=== PATIENT | female | born 1975 | race African-American/Black ===

== ENCOUNTER 2023-01-14 05:07 | Observation (INO) ==
--- NOTE | 2022-12-18 12:41 | PAT Medication Instructions ---
Medication Instructions Date of Service December 18, 2022 Home Medications Vitamin D3 600 mcg PO QAM cyanocobalamin (vitamin B-12) 1 tab PO UD PRN propranolol 120 mg capsule,24 hr,extended release 120 mg PO QAM rizatriptan 10 mg tablet 10 mg PO UD PRN Continue as directed rizatriptan 10 mg tablet 10 mg PO UD PRN(if needed) DO NOT take the morning of surgery Vitamin D3 600 mcg PO QAM cyanocobalamin (vitamin B-12) 1 tab PO UD PRN Take morning of surgery With a small sip of water, OTHERWISE NOTHING TO EAT OR DRINK AFTER MIDNIGHT: propranolol 120 mg capsule,24 hr,extended release 120 mg PO QAM Other Notes If you have any questions please call us at [phone] or [phone] or [phone] or [phone]
--- NOTE | 2022-12-26 11:32 | Anesthesiology Consultation ---
Date of Service December 26, 2022 Assessment & Plan (1) Encounter for pre-operative examination: - check urine test STAT am DOS. - Outpatient joint assessment: Patient is currently scheduled for inpatient pathway. If re-evaluated and patient/surgeon requests outpatient pathway, patient is not recommended candidate for outpatient joint program from anesthesia standpoint. Chart Review Chart Review: Acceptable Risk for Surgery and Patient seen in Pre Admission Testing Teaching & Discussion Pre-Anesthesia Teaching/Discussion Notes: Instructed NPO after midnight before surgery, except medications with 15 cc of water. Medication instructions provided according to the PAT guidelines. History Surgery Operation Date: 01/14/23 10:00 Proposed Procedures p Left Total Knee Arthroplasty - Mg Griffin MD Height/Weight Height: 5 ft 3 in Weight: 139.6 kg Allergies Allergy/AdvReac Type Severity Reaction Status Date / Time lisinopril Allergy Severe angioedema Verified 12/25/22 08:37 topiramate [From Topamax] Allergy Severe Selina Verified 12/25/22 08:37 sumatriptan [From Imitrex] Allergy felt like Verified 12/25/22 08:37 her heart was going to explode Medications Home Medications Medication Instructions Recorded Confirmed Last Taken Vitamin D3 600 mcg PO QAM 12/18/22 12/25/22 Unknown cyanocobalamin (vitamin B-12) 1 tab PO UD PRN Fatigue 12/18/22 12/25/22 Unknown propranolol 120 mg capsule,24 120 mg PO QAM 12/18/22 12/25/22 Unknown hr,extended release rizatriptan 10 mg tablet 10 mg PO UD PRN migraines 12/18/22 12/25/22 Unknown acetaminophen [Tylenol] PO PRN 12/25/22 12/25/22 Unknown [id number] See Rx Instructions topical DAILY 12/26/22 Unknown 0.01 %-4 %-0.05 % topical cream #30 grams ([facility]) Past Medical History Medical History (Updated 12/26/22 @ 11:42 by Dedra Roldan PA-C) History of COVID-19 02/2021, home test, vertigo, shortness of breath, mental fog (lasted 2 months), fatigue>no residual symptoms Slow to wake up after anesthesia "felt like she couldn't function for 4 days after general anesthesia first c- section" Hx of migraines Hypertension controlled, stable per pt Patient denies h/o stroke, seizures, heart attack, heart failure, DM, blood clots/DVTs or blood transfusions. Exercise / Class Metabolic Activity II 4-5 Yardwork/Stairs/Walk up hill (denies chest discomfort or shortness of breath with 1 FOS) Past Family History Family History Mother Heart disease Hypertension Father Diabetes Past Surgical History Surgical History (Updated 12/26/22 @ 11:42 by Dedra Roldan PA-C) [place] teeth extracted History of esophagogastroduodenoscopy (EGD) x2 H/O section x2 Past Anesthesia History No Family Hx of Anesthesia Complications and Other (see above) History of PONV No Hx of PONV and No Hx of Motion Sickness Social History Smoking Status: Current every day smoker (-advised) Smoking cigarettes per day: 10 Do You Dip or Chew Tobacco: No Hx Alcohol Use: Yes Alcohol type: hard liquor alcohol intake frequency: a few times a month Hx Substance Use: No substance use type: does not use Review of Systems Snoring, denies witnessed apneas. Patient denies chest pain, shortness of breath, dyspnea on exertion, reflux, fever, chills, cough, wheezing, or palpitations. Physical Exam Vital Signs Vitals BP 118/63 P 68 TEMP 97.9 SP02 99% on RA RESP 18 Physical Patient resting comfortably in chair in no acute distress, alert and oriented, responding appropriately throughout visit Full cervical extension range of motion without pain TMD 3.5 finger breadths Mallampati Score 2 Dentition: several caps/crowns, denies chipped or loose teeth, implants or bridges Lungs: normal respiratory effort. Good air movement, clear throughout to auscultation, no adventitious breath sounds Cardiac: regular rate and rhythm, no murmurs noted Carotid arteries: negative bruit bilat Lab Results Anesthesia Preop Results Results Anesthesia Widget: WBC 6.27 K/ul (4.8-10.8) 12/26/22 Hgb 13.0 g/dl (12.0-16.0) 12/26/22 Hct 39.7 % (37.0-47.0) 12/26/22 Plt 244 K/uL (130-400) 12/26/22 Na 140 mmol/L (136-145) 12/26/22 K 3.9 mmol/L (3.5-5.1) 12/26/22 Cl 108 mmol/L (98-107) H 12/26/22 CO2 27 mmol/L (21-32) 12/26/22 BUN 14 mg/dl (6-23) 12/26/22 Creat 0.73 mg/dl (0.6-1.2) 12/26/22 Glucose Level 86 mg/dl (70-99(Fasting)) 12/26/22 PT 10.6 Seconds (9.0-12.0) 12/26/22 PTT 27.6 Seconds (21.0-31.0) 12/26/22 INR 1.0 (0.9-1.1) 12/26/22 Urine Color Yellow 12/26/22 Urine Appearance Clear (Clear) 12/26/22 Urine pH 6.0 (4.5-7.5) 12/26/22 Urine Specific [place] 1.016 (1.000-1.030) 12/26/22 Urine Protein Negative (Negative) 12/26/22 Urine Glucose (UA) Negative (Negative) 12/26/22 Urine Ketones Negative (Negative) 12/26/22 Urine Blood Negative (Negative) 12/26/22 Urine Nitrite Negative (Negative) 12/26/22 Urine Bilirubin Negative (Negative) 12/26/22 Urine Urobilinogen Negative (Negative) 12/26/22 Urine Leukocyte Esterase Negative (Negative) 12/26/22 Blood Type B Positive 12/26/22 Antibody Screen NEGATIVE 12/26/22 Testing Electrocardiogram Date: 12/26/22 No acute process Chest X-Ray Date: 12/26/22 No acute process.
--- NOTE | 2023-01-10 08:26 | History & Physical Report ---
Date of Service January 10, 2023 Assessment & Plan (1) Primary osteoarthritis of left knee: Plan: Treatment options discussed with the patient and they wish to proceed with surgical management. Risks, benefits and alternatives to surgery including but not limited to infection, DVT, pain, stiffness, need for revision surgery, damage to blood vessels, damage to nerves, PE, , were discussed with the patient and they wish to proceed. Plan for left total knee arthroplasty scheduled for January 14 at [facility] with Dr. Griffin. Plan on Xarelto postop for DVT prophylaxis. Plan on outpatient physical therapy postop. All questions answered. Patient will follow-up postoperatively. History of Present Illness Chief Complaint: Left knee pain Primary Care Provider: Daryl Almonte MD 47-year-old female with past medical history significant for hypertension, history of migraines who presents with ongoing left knee pain. Pain is interfering with her daily activities. She has failed conservative measures including anti-inflammatories and injections. She would like to proceed with surgical management. Patient denies headaches, sweats, fevers, chills, double vision, blurred vision, cough, sore throat, dysphagia, chest pain, sob, wheezing, n/v/d/c, numbness, tingling, fatigue, urinary symptoms, mood disorders. ROS positive for left knee pain and stiffness. Allergies Allergy/AdvReac Type Severity Reaction Status Date / Time lisinopril Allergy Severe angioedema Verified 12/25/22 08:37 topiramate [From Topamax] Allergy Severe Selina Verified 12/25/22 08:37 sumatriptan [From Imitrex] Allergy felt like Verified 12/25/22 08:37 her heart was going to explode Home Medications Medication Instructions Recorded Confirmed Type Vitamin D3 600 mcg PO QAM 12/18/22 12/25/22 History cyanocobalamin (vitamin B-12) 1 tab PO UD PRN Fatigue 12/18/22 12/25/22 History propranolol 120 mg capsule,24 120 mg PO QAM 12/18/22 12/25/22 History hr,extended release rizatriptan 10 mg tablet 10 mg PO UD PRN migraines 12/18/22 12/25/22 History acetaminophen [Tylenol] PO PRN 12/25/22 12/25/22 History [id number]-ulnoljkim See Rx Instructions topical DAILY 12/26/22 Rx 0.01 %-4 %-0.05 % topical cream #30 grams ([facility]) Past Med/Surg History Medical History (Updated 01/10/23 @ 08:28 by Justin Valdez PA-C) History of COVID-19 02/2021, home test, vertigo, shortness of breath, mental fog (lasted 2 months), fatigue>no residual symptoms Slow to wake up after anesthesia "felt like she couldn't function for 4 days after general anesthesia first c- section" Hx of migraines Hypertension controlled, stable per pt Surgical History (Updated 12/26/22 @ 11:42 by Dedra Roldan PA-C) [place] teeth extracted History of esophagogastroduodenoscopy (EGD) x2 H/O section x2 Family History Mother Heart disease Hypertension Father Diabetes Social History Smoking Status: Current every day smoker (-advised) Tobacco Type: Cigarettes Cigarettes Per Day: 10; Second Hand Exposure: No; Do You Dip or Chew Tobacco: No; Tobacco Cessation Education Requested by Patient: No Hx Alcohol Use: Yes Alcohol type: hard liquor Hx Substance Use: No Preferred Language: [place] Communication Ability: Effective Milk Drier Required: No Beliefs That Will Affect Care: None marital status: Current Living Situation: Spouse and Family Other Information That Helps Us Care for You: No Feels Safe at Home: Yes Safety Concerns: Feels Safe At This Time Assistive Devices: Cane Review of Systems All systems reviewed & are unremarkable except as noted in HPI & below Physical Exam Constitutional: well developed and well nourished; no acute distress Eyes: PERRL, conjunctivae normal, anicteric sclerae ENMT: external ear and nose normal, oropharynx normal Neck: trachea midline, no thyromegaly Respiratory: normal respiratory effort, lungs clear to auscultation Cardiovascular: RRR, no murmur, no edema Musculoskeletal: Left knee: Varus alignment with mild joint effusion. Tenderness medial joint line. Positive Cecilia's. Stable to valgus and varus stress test. Range of motion is 10 to 95 degrees. Skin: no rashes, warm and dry Neurologic: patellar DTR's 2+ bilat, sensation intact Psychiatric: A+Ox3, euthymic affect Results & Data Diagnostic Findings Left knee radiographs demonstrate end-stage osteoarthritis left knee, [id number] medial compartment. She does have bone loss medial tibial plateau. There is periarticular osteophytes. Varus alignment.
[2023-01-14] MEDS ORDERED: ACETAMINOPHEN 500 MG TAB PO SCH (06:00)
[2023-01-14] MEDS ORDERED: TRANEXAMIC ACID 1,000 MG **IV Intra-op IV SCH (06:00)
[2023-01-14] MEDS ORDERED: LR 60ML/HR IV SCH (06:00)
[2023-01-14] MEDS ORDERED: TRANEXAMIC ACID 1,000 MG **IV Pre-op IV SCH (06:00)
[2023-01-14] MEDS ORDERED: METOCLOPRAMIDE HCL 10 MG TABLET PO SCH (06:00)
[2023-01-14] MEDS ORDERED: ROPIVACAINE 0.5% HCL/PF 150 MG, BUPIVACAINE 0.75% MPF 20 ML, EPINEPHrine 30MG/30ML (OR ... INSTIL SCH (06:00)
[2023-01-14] MEDS ORDERED: GABAPENTIN 900 MG DOSE PO SCH (06:00)
[2023-01-14] MEDS ORDERED: LR 500ML BOLUS, THEN 15ML/HR IV SCH (06:00)
[2023-01-14] MEDS ORDERED: dexAMETHasone 4 MG TAB PO SCH (06:00)
[2023-01-14] MEDS ORDERED: FAMOTIDINE 20 MG TAB PO SCH (06:00)
[2023-01-14] MEDS ORDERED: CeleBREX 200 MG CAP PO SCH (06:00)
[2023-01-14] MEDS ORDERED: ROPIVACAINE 0.5% 5 MG/ML 30 ML VIAL ONE (06:21)
[2023-01-14] MEDS ORDERED: BUPIVACAINE 0.5 % 5 MG/1 ML PF 10ML VIAL ONE (06:21)
[2023-01-14] MEDS ORDERED: fentaNYL citrate PF 100 MCG/2 ML VIAL IV PRN (06:38)
[2023-01-14] MEDS ORDERED: ATROPINE SULFATE 0.1 MG/ML 10ML SYR IV PRN (06:38)
[2023-01-14] MEDS ORDERED: ONDANSETRON INJ 2 MG/ML 2 ML VIAL IV PRN ×2 (06:38→12:43)
[2023-01-14] MEDS ORDERED: ePHEDrine sulfate 50 MG/ML AMP IV PRN (06:38)
[2023-01-14] MEDS ORDERED: fentaNYL citrate PF 100 MCG/2 ML VIAL ONE (06:53)
[2023-01-14] MEDS ORDERED: MIDAZOLAM HCL 1 MG/ML 2ML VIAL ONE (06:53)
--- NOTE | 2023-01-14 07:07 | History & Physical Bridge Note ---
Date of Service January 14, 2023 History & Physical Bridge Note I have examined the patient, reviewed the History & Physical and in the interval since the performance of the History & Physical I have noted the following changes of clinical significance: no changes noted
[2023-01-14] MEDS ORDERED: ORTHO JOINT ANESTHETIC ONE (07:18)
[2023-01-14] MEDS ORDERED: PROPOFOL IV EMULSION 10 MG/ML 20 ML VIAL IV ONE ×3 (07:32→10:05)
[2023-01-14] MEDS ORDERED: ONDANSETRON INJ 2 MG/ML 2 ML VIAL ONE (07:32)
[2023-01-14] MEDS ORDERED: LIDOCAINE 2% 2 ML VIAL/AMP(20MG/ML) INFIL ONE (07:32)
--- NOTE | 2023-01-14 10:36 | Post Operative Brief Note ---
Immediate Post Op Note v1 Date of Surgery January 14, 2023 Pre & Post Diagnosis Operation Date: 01/14/23 07:15 Pre-Op Diagnosis: Left Knee Osteoarthritis, Morbid obesity BMI 55.3 Post-Op Diagnosis: Left Knee Osteoarthritis, morbid obesity BMI 55.3 I identified the patient and participated in the time-out.: Yes Procedure Operation Date: 01/14/23 07:15 Actual Procedures p Left Total Knee Arthroplasty(Left), increased difficulty more obesity BMI 55.3 - Mg Griffin MD Surgeon Mg Griffin MD [place] Supervisor Justin GEORGE Estimated Blood Loss 10 Findings Consistent with Post-Op Diagnosis Specimens bone cuts Drains Hemovac Drain Anesthesia Type MAC Spinal Regional Complications none Disposition Disposition: Recovery Room Overlapping Procedure I was immediately available: during the entire case.
--- NOTE | 2023-01-14 10:52 | Operative Report ---
Post Operative Report Pre & Post Diagnosis Operation Date: 01/14/23 07:15 Pre-Op Diagnosis: Left Knee Osteoarthritis, morbid obesity BMI 55.3 Post-Op Diagnosis: Left Knee Osteoarthritis , morbid obesity BMI 55.3 I identified the patient and participated in the time-out.: Yes Procedure Operation Date: 01/14/23 07:15 Actual Procedures p Left Total Knee Arthroplasty(Left), increased difficulty more obesity BMI 55.3, application petrona and Acticoat superficial wound VAC - Mg Griffin MD Surgeon Mg Griffin MD Hammerer Justin GEORGE Estimated Blood Loss 10 Findings Consistent with Post-Op Diagnosis Specimens bone cuts Drains 2 Hemovac Anesthesia Type MAC Spinal Regional Complications none Disposition Disposition: Recovery Room Indications 47-year-old female with extensive conservative management with chronic osteoarthritis in her left knee. Radiographs demonstrate she is [id number] there is medial subluxation of the femur on the tibia she has bone loss in the medial compartment tricompartmental osteoarthritic changes with a varus knee. Description of Procedure Patient taken to the operating room the size under Spinal MAC regional block anesthesia. Patient was placed supine on the operating table. A pneumatic tourniquet was placed about the markedly obese upper thigh. The left lower extremity was prepped and draped in sterile fashion. Knee exam demonstrated varus knee no pseudolaxity 0 through 90 degrees range of motion. The leg was elevated exsanguinated with an Esmarch bandage and pneumatic tourniquet was raised to 350 millimeters of mercury. Skin incised sharply in longitudinal fashion. Subcutaneous flaps elevated. Incision was made through the medial retinaculum extending up in the mid third of the quadriceps tendon and down to the medial tibial tubercle. Intra-articular findings demonstrated tricompartmental osteoarthritis rdvj-ik-cqfq medial compartment some bone loss on the tibia and femur with eburnation medial compartment and tricompartmental osteophytes. The [email or web address] tri[employer]patchn total knee arthroplasty system was used. To expose the knee the infrapatellar fat pad was resected. The meniscal remnants and cruciate ligaments were resected. The anterior fat pad over the femur in the area of the location of the anterior flange of the femoral component was r esected. The lateral synovial bands were released. The femur was exposed. An intramedullary drill hole was made into the canal. A guide luis antonio was placed. Distal femoral cutting guide was adjusted to resect a 5 degree valgus cut with 8 millimeters distal femur resected. The knee was extended and a subperiosteal peel lateral release was performed around the patella. Patella width was measured and width was reproduced using a freehand cut technique and a 33 symmetrical patella component. The 3 drill holes were made and the excess lateral facet was beveled off to prevent any impingement. Attention was taken back to the femur which was exposed with retractors and the femoral sizing guide was pinned in position. The drill holes were placed in 3 of external rotation to match the epicondylar axis. The femur sized for a 4 component. I needed a 1.5mm AP shift to avoid notching of the anterior cortex. The 4-in-1 cutting block was placed and then the anterior posterior and chamfer cuts are made. bone quality was hard. The tibia was then subluxed. The external tibial cutting guide was adjusted to make a perpendicular cut to the long axis of the tibia below the most deficient bone loss side. Cut was adjusted for slope. A lamina cinder man was used and the flexion extension gaps were balanced. medial subperiosteal proximal tibial releases were required. All posterior osteophytes removed. All meniscal remnants were resected. The tibia exposed and the trial tibial component size 3 was externally rotated in line with the tibial tubercle and pinned in position. The punch for stem was used. The notch cutting device was centered appropriately and the femoral notch cut was made. The femoral trial was inserted. Trial tibial inserts were placed and size11 gave balanced ligaments through flexion and extension. Patella tracking was assessed. The patella tracked centrally. The trial components were then removed and the orthomix anesthetic cocktail was injected per protocol. The knee was then copiously irrigated with pulsatile lavage saline solution. Final components were then cemented with Refobacin cement. Final components were triathlon size 4 left posterior stabilized femoral component, 3 universal tibial baseplate with a 12 x 50 mm cemented stem, 11 mm X.3 polyethylene tibial bearing insert, 33 x 9 mm X.3 polyethylene symmetrical patella component. After the cement cured the Betadine soak was used for 3 minutes. Further pulsatile lavage irrigation was then performed and 2 Hemovac drains were brought out laterally. The quadriceps tendon and medial retinaculum were closed with figure of 8 #1 Vicryl sutures. The knee was taken through full range of motion and the repair was secure. Knee range of motion was 0 through about 100 degrees when her thigh abutted against her calf muscle. The subcutaneous tissues were closed with 2-0 Vicryl sutures. Skin was closed with Prole. a petrona and Acticoat superficial wound VAC was applied. The patient tolerated the procedure well. Justin GEORGE was my physician day care assistant who participated as heel sprayer first and was involved in all aspects of the procedure including patient positioning prepping and draping,leg positioning ,soft tissue retraction and instrument management and participated in the closing and application of the superficial wound VAC and will participate in postoperative care of the patient. due to her significant obesity there was increased level of difficulty of the procedure and 45-minute increased surgical time. The patient tolerated the procedure well. I attest to the content of the Intraoperative Record and any orders documented therein. Any exceptions are noted below.
--- NOTE | 2023-01-14 11:16 | XRay Report ---
TWO VIEWS LEFT KNEE CLINICAL HISTORY: Postoperative examination. FINDINGS: AP and crosstable lateral portable views of the left knee are obtained. A left knee arthrop lasty is in near anatomic alignment. There has been undersurface remodeling of the patella. No acute fracture is seen. There are expected postoperative changes around the knee including skin clips, a pastor rgical drain, soft tissue edema, and subcutaneous gas. IMPRESSION: Expected postoperative changes status post left knee arthroplasty. No acute fracture is s een. ACT 112: Negative or not required by law. Electronically signed by: Bob Lal M.D. 01/14/2023 11:15 AM
--- NOTE | 2023-01-14 12:25 | Anesthesiology Progress Note ---
Date of Service January 14, 2023 Anesthesia Post Procedure Vital Signs Vital Signs: Temp Pulse Resp BP Pulse Ox O2 Del Method 01/14/23 12:00 62 18 146/82 H 100 Room Air 01/14/23 11:45 59 L 16 143/79 H 100 Room Air 01/14/23 11:30 59 L 16 155/85 H 100 Room Air 01/14/23 11:20 97.9 F 57 L 16 162/83 H 100 Room Air 01/14/23 11:10 58 L 18 145/70 H 100 Room Air 01/14/23 11:00 56 L 18 140/80 100 Room Air 01/14/23 10:50 64 20 127/82 100 Room Air 01/14/23 10:42 97.3 F L 63 20 104/90 95 Room Air 01/14/23 05:50 98.4 F 59 L 20 144/104 H 99 Room Air Pain Intensity Left Knee: Pain Intensity: 5 Transfer of Care Handoff Completed per policy Notes Mental Status: alert / awake / arousable and participated in evaluation Patient Amnestic to Procedure: Yes Nausea / Vomiting: adequately controlled Pain: adequately controlled Airway Patency, RR, SpO2: stable & adequate BP & HR: stable & adequate Hydration State: stable & adequate Neuraxial Anesthesia: was administered and sensory block is resolving Anesthetic Complications: no major complications apparent and Pt Satisfied with anesthetic care
[2023-01-14] MEDS ORDERED: MAGNESIUM HYDROXIDE SUSP 30 ML UDC PO PRN (12:43)
[2023-01-14] MEDS ORDERED: HYDROmorphone INJ 0.5 MG/0.5 ML SYR IV PRN (12:43)
[2023-01-14] MEDS ORDERED: METOCLOPRAMIDE HCL INJ 5 MG/ML 2 ML VIAL IV PRN (12:43)
[2023-01-14] MEDS ORDERED: SODIUM CHLORIDE 0.9% 1,000 ML IV SCH (12:43)
[2023-01-14] MEDS ORDERED: RIZATRIPTAN BENZOATE 10 MG TAB PO PRN (12:43)
[2023-01-14] MEDS ORDERED: bisacodyL 10 MG SUPP PR PRN (12:43)
[2023-01-14] MEDS ORDERED: NALOXONE HCL 0.4 MG/1 ML VIAL/CARP IV PRN (12:43)
[2023-01-14] MEDS ORDERED: CYANOCOBALAMIN (B-12) 100 MCG TABLET PO PRN (13:02)
[2023-01-14] MEDS: ACETAMINOPHEN 500 MG TAB PO SCH ×2 (13:54→21:55)
[2023-01-14] MEDS: ceFAZolin 2000MG 2,000 MG/15 ML SYR IV SCH ×2 (16:37→23:04)
[2023-01-14] MEDS ORDERED: SENNA 8.6 MG TAB PO SCH (21:00)
[2023-01-14] MEDS: DOCUSATE SODIUM 100 MG CAP PO SCH (21:55)
[2023-01-15] MEDS: ACETAMINOPHEN 500 MG TAB PO SCH (05:29)
[2023-01-15] MEDS: oxyCODONE HCL IR 5 MG TAB (IMMEDIATE RELEASE) PO PRN ×2 (05:32→10:55)
[2023-01-15 07:04] LABS: Hematocrit (blood only) 31.4 % (37.0-47.0); Hemoglobin 10.2 g/dl (12.0-16.0); Mean Corpuscular Hemoglobin 31.2 pg (25.0-34.0); Mean Corpuscular Hgb Conc 32.5 g/dL (32.0-36.0); Mean Platelet Volume 10.6 fL (9.4-12.4); Platelet Count 223 K/uL (130-400); RDW Coefficient of Variation 12.3 % (11.5-14.5); RDW Standard Deviation 43.3 fL (36.4-46.3); Red Blood Count 3.27 M/uL (4.20-5.40); White Blood Count 11.48 K/ul (4.8-10.8)
[2023-01-15 07:19] LABS: BUN Creatinine Ratio 20.3 (10-20); Calcium 8.2 mg/dl (8.6-10.3); Creatinine Clr Calc Pharmacy 149.4 ml/min; Est GFR (African American) 122.3 ml/min; Est GFR (Non-African American) 105.5 ml/min; Potassium 3.9 mmol/L (3.5-5.1)
[2023-01-15] MEDS: DOCUSATE SODIUM 100 MG CAP PO SCH (08:38)
[2023-01-15] MEDS ORDERED: CHOLECALCIFEROL 1,000 UNITS 25 MCG TAB PO SCH (09:00)
[2023-01-15] MEDS ORDERED: CeleBREX 200 MG CAP PO SCH (09:00)
[2023-01-15] MEDS ORDERED: MULTIVITAMIN TAB PO SCH (09:00)
[2023-01-15] MEDS ORDERED: PROPRANOLOL HCL 60 MG LA CAP PO SCH (09:00)
[2023-01-15] MEDS ORDERED: RIVAROXABAN 10 MG TABLET PO SCH (09:00)
--- NOTE | 2023-01-15 09:17 | Orthopedic Progress Note ---
Date of Service January 15, 2023 Assessment & Plan (1) Primary osteoarthritis of left knee: Plan: Postop day 1 status post left total knee arthroplasty. PT/OTweight-bear as tolerated left lower extremity. DVT prophylaxisXarelto 10 mg daily x 14 days, BARBARA stockings x 14 days. Pain controloral Tylenol and oxycodone, oral Celebrex daily. Hemovacthe Hemovac will be removed prior to discharge home. Discharge planningplan for home today. Patient will be participating in outpatient physical therapy. She will start on 01/19/2023. Admission and Anticipated Discharge Date Admission Date: January 14, 2023 Subjective Patient states she is doing well. Pain is controlled within the left knee. She has been ambulating to and from the bathroom. Denies chest pain, shortness of breath, lightheadedness. No complaints today. Physical Exam Constitutional: WD/WN, vitals as above no acute distress (The patient was ambulating to the bathroom at the time of the visit.) Musculoskeletal: Knee: + surgical incision (DAE dressing in place and functioning left knee.) and + surgical drain present (Hemovac is draining 735 cc over 24 hours. Drainage has been lessening.); no deformity, no skin erythema and no ecchymosis Skin: no rashes, warm and dry Trauma: no evidence of skin trauma Neurologic: normal touch/pain/proprioception Psychiatric: A+Ox3, euthymic affect Speech: normal rate/rhythm/volume of speech Results & Data Vital Signs (Past 12 Hours) Vital Signs Temp Pulse Resp BP Pulse Ox O2 Del Method 01/15/23 08:04 36.6 C 78 16 132/81 96 Room Air 01/15/23 03:36 36.6 C 87 16 115/72 97 Room Air 01/14/23 23:00 36.8 C 86 16 109/71 96 Room Air Laboratory Results Laboratory Tests 01/15/23 05:57 Hgb 10.2 L Hct 31.4 L BUN 13 Creatinine 0.64
--- NOTE | 2023-01-19 12:40 | Discharge Summary ---
Date of Service January 19, 2023 Admission HPI Per Admitting Provider 47-year-old female with past medical history significant for hypertension, history of migraines who presents with ongoing left knee pain. Pain is interfering with her daily activities. She has failed conservative measures including anti-inflammatories and injections. She would like to proceed with surgical management. Patient denies headaches, sweats, fevers, chills, double vision, blurred vision, cough, sore throat, dysphagia, chest pain, sob, wheezing, n/v/d/c, numbness, tingling, fatigue, urinary symptoms, mood disorders. ROS positive for left knee pain and stiffness. Admission Exam Per Admitting Provider Constitutional: well developed and well nourished; no acute distress Eyes: PERRL, conjunctivae normal, anicteric sclerae ENMT: external ear and nose normal, oropharynx normal Neck: trachea midline, no thyromegaly Respiratory: normal respiratory effort, lungs clear to auscultation Cardiovascular: RRR, no murmur, no edema Musculoskeletal: Left knee: Varus alignment with mild joint effusion. Tenderness medial joint line. Positive Cecilia's. Stable to valgus and varus stress test. Range of motion is 10 to 95 degrees. Skin: no rashes, warm and dry Neurologic: patellar DTR's 2+ bilat, sensation intact Psychiatric: A+Ox3, euthymic affect Principal Diagnosis left knee osteoarthritis Discharge Exam Constitutional: WD/WN, vitals as above no acute distress (The patient was ambulating to the bathroom at the time of the visit.) Musculoskeletal: Knee: + surgical incision (DAE dressing in place and functioning left knee.) and + surgical drain present (Hemovac is draining 735 cc over 24 hours. Drainage has been lessening.); no deformity, no skin erythema and no ecchymosis Skin: no rashes, warm and dry Trauma: no evidence of skin trauma Neurologic: normal touch/pain/proprioception Psychiatric: A+Ox3, euthymic affect Speech: normal rate/rhythm/volume of speech Discharge Data Allergies Allergy/AdvReac Type Severity Reaction Status Date / Time lisinopril Allergy Severe angioedema Verified 01/14/23 05:45 topiramate [From Topamax] Allergy Severe Selina Verified 01/14/23 05:45 sumatriptan [From Imitrex] Allergy felt like Verified 01/14/23 05:45 her heart was going to explode Consultations 01/09/23 11:49 Consult Hospitalist Routine Procedures Performed Operation Date: 01/14/23 07:15 Actual Procedures p Left Total Knee Arthroplasty(Left) - Mg Griffin MD Ordered Studies 01/14/23 05:00 US - OR guided needle placemen Routine Hospital Course (1) Primary osteoarthritis of left knee: Postop day 1 status post left total knee arthroplasty. PT/OTweight-bear as tolerated left lower extremity. DVT prophylaxisXarelto 10 mg daily x 14 days, BARBARA stockings x 14 days. Pain controloral Tylenol and oxycodone, oral Celebrex daily. Hemovacthe Hemovac will be removed prior to discharge home. Discharge planningplan for home today. Patient will be participating in outpatient physical therapy. She will start on 01/19/2023. Lab Results 01/14/23 01/15/23 Range/Units 05:35 05:57 WBC 11.48 H (4.8-10.8) K/ul RBC 3.27 L (4.20-5.40) M/uL Hgb 10.2 L (12.0-16.0) g/dl Hct 31.4 L (37.0-47.0) % MCV 96.0 (80.0-100.0) fL MCH 31.2 (25.0-34.0) pg MCHC 32.5 (32.0-36.0) g/dL RDW Std Deviation 43.3 (36.4-46.3) fL RDW Coeff of Nory 12.3 (11.5-14.5) % Plt Count 223 (130-400) K/uL MPV 10.6 (9.4-12.4) fL Sodium 139 (136-145) mmol/L Potassium 3.9 (3.5-5.1) mmol/L Chloride 110 H (98-107) mmol/L Carbon Dioxide 23 (21-32) mmol/L Anion Gap 6 (3-11) BUN 13 (6-23) mg/dl Creatinine 0.64 (0.6-1.2) mg/dl Est Cr Clr Drug Dosing 149.4 ml/min Est GFR ( Amer) 122.3 ml/min Est GFR (Non-Af Amer) 105.5 ml/min BUN/Creatinine Ratio 20.3 H (10-20) Glucose 129 H (70-99(Fasting)) mg/dl Calcium 8.2 L (8.6-10.3) mg/dl POC Ur Test NEG (NEG) Total Time Total Time Spent Total Time Spent (In Minutes): 20 Discharge Plan Discharge Items Patient Disposition: Home - Self-Care Reason For Visit: Left Knee Osteoarthritis Discharge Diagnosis: left knee osteoarthritis Activity: Per Instructions section Weightbearing: Full weightbearing Non-emergency contact: Surgeon Call non-emergency contact if: you have any medication questions, your pain is not controlled, you have a fever, your temperature is above 101, your wound has increased redness and your wound has increased drainage Follow-up/Referrals: Daryl Almonte MD [Primary Care Provider] - Diet: Regular Addtl Attending Provider Instructions: ACTIVITY RECOMMENDATIONS: SELF CARE INSTRUCTIONS AFTER TOTAL KNEE REPLACEMENT A. You may need to continue a physical therapy program after discharge from the hospital. There are several options available to you. Your doctor will assist you in selecting the best one for you. 1. An out-patient facility 2 to 3 times a week for therapy or home therapy. 2. Continue working on all exercises taught to you in the hospital. Your goals should be to increase bending of your knee to 90 degrees and beyond and to fully straighten your knee. B. You may progress at your own pace from walking with a walker or crutches to a cane; then to no assistive devices. C. Make walking a part of your daily routine. Be up as much as comfortable with rest periods throughout the day. Rest with leg elevation is very important. Use the ice wrap frequently for the first 3-4 weeks. D. There are no restrictions on activities. You may ride in a car, shop, participate in power project manager and all social activities. E. Wear the long elastic stockings (BARBARA hose) 20 hours a day for 2 weeks after surgery. They can be removed several times a day for laundering and for a bath. F. You may shower, no tub baths until cleared by your doctor. SPECIAL CARE INSTRUCTIONS: VERY IMPORTANT TO READ AND REVIEW A. There are a few signs you need to watch for after you are home. Call [facility] if you notice any of the followin. Increased severe knee pain. Some pain is expected especially when you exercise. 2. Increased swelling in your leg or knee; pain or swelling of the calf muscle in either lower leg. 3. Any fluid drainage from the incision. 4. Shortness of breath or chest pain. B. Please call [facility] at if you have any concerns or questions about your operation or recovery. The doctor or his nurse will return your call promptly. C. You must take antibiotics before dental work, bladder, bowel or other surgery. Your doctor will provide you with a permanent care to carry describing this precaution. IMPORTANT: * REMEMBER TO TAKE ASPIRIN, 81 MG, TWICE DAILY FOR 4 WEEKS UNLESS OTHERWISE DIRECTED. THIS IS YOUR BLOOD THINNER. * HIGH RISK PATIENTS MAY BE PRESCRIBED A STRONGER BLOOD THINNER. THIS WILL BE PROVIDED AT DISCHARGE. * CALL IF INCREASED PAIN, REDNESS, DRAINAGE OR FEVER GREATER THAT 101. * WEAR BARBARA HOSE 20 HOURS PER DAY FOR 2 WEEKS. * There is a large suction dressing covering your incision. This will help pull any excess drainage from the wound and allow your incision to heal properly. You may shower with this if you can keep the unit outside of the shower. If any bleeding or leakage is noted please call your doctor's office. This will remain on your incision for 7 days and then should be removed. This can be done yourself or by the home nursing staff if applicable. The entire unit is disposable once removed. Once removed, keep incision clean and dry. If redness or drainage is noted, please call your surgeon. IF INCISION IS LEAKING THROUGH DRESSING, CALL THE OFFICE . FOLLOW UP VISIT: If appointment is not already scheduled: Please call [facility] to make a follow-up appointment for 2 weeks after your surgery at . Pending Studies at Discharge: No Stand-Alone Forms: [facility], Pain - Opioid Pain Management, Smoking Cessation Medications and DC Order Prescriptions: New cefadroxil 500 mg capsule 500 mg PO BID Qty: 28 0RF oxycodone 5 mg tablet 5 mg PO Q4H PRN (Reason: pain) Qty: 20 0RF acetaminophen [Tylenol Extra Strength] 500 mg tablet 1,000 mg PO Q8H Qty: 100 0RF celecoxib [Celebrex] 200 mg capsule 200 mg PO DAILY Qty: 30 0RF Xarelto 10 mg tablet 10 mg PO DAILY 13 Days Qty: 13 0RF Continued cyanocobalamin (vitamin B-12) Tablet,Chewable 1 tab PO UD PRN (Reason: Fatigue) Vitamin D3 600 mcg PO QAM rizatriptan 10 mg tablet 10 mg PO UD PRN (Reason: migraines) Rx Instructions: take 1 tablet by mouth AT ONSET OF MIGRAINE may repeat in 2 hours IF migraines PERSISTS maximum daily dose of 3 tablets ( 30 milligrams ) every 24 hours MAX 10 DOSES PER MONTH propranolol 120 mg capsule,extended release 24 hr 120 mg PO QAM Discontinued acetaminophen [Tylenol Arthritis] 650 mg Tablet Extended Release 650 mg PO Q12H PRN (Reason: Pain) Discharge Orders: Discharge Order (Routine); Ordered 01/15/23 Ordered By: Thad Graham/Other Patient Handouts: Understanding Knee Replacement, Knee Replace Home Recovery, Knee Replace Control Swelling Admission Data Admit Date/Time: 01/14/23 10:45 Attending Provider: Mg Griffin Admit Provider: Mg Griffin Primary Care Provider: Daryl Almonte. Other Providers: Pito Maharaj Other Interventions: Discharge Summary Assessment (RN) Last Done: 01/15/23 09:40
== END 2023-01-15 11:13 | disposition home or self-care (01) ==
LOC: 3E 05:07 → ASU 05:07